=== PATIENT | female | born 1985 | race Caucasian/White ===

== ENCOUNTER → 2018-02-07 | Outpatient (CLI) | payer MEDICAID | LOC: HPND 13:41 | PROVIDERS: ATTEND Obstetrics & Gynecology | DX: O99.212 Obesity complicating pregnancy, second trimester (principal); E66.09 Other obesity due to excess calories; Z68.34 Body mass index [BMI] 34.0-34.9, adult | CPT/HCPCS: 76811 ==

== ENCOUNTER 2018-06-07 09:36 | Inpatient (IN) ==
[2018-06-07] MEDS ORDERED: Sodium Chlor 0.9% Inj 500 ML IV.SIG PRN (10:38)
[2018-06-07] MEDS ORDERED: Naloxone Inj 0.4 MG/ML Vial IV.PUSH PRN ×2 (10:38→12:29)
[2018-06-07] MEDS ORDERED: fentaNYL Citrate Inj 100 MCG/2 ML Ampul IV.PUSH PRN ×3 (10:38→12:41)
[2018-06-07] MEDS ORDERED: Sod Chloride 0.9% Inj 1,000 ML IV.CONT PRN (10:38)
--- NOTE | 2018-06-07 10:40 | P.HPOB ---
History of Present Illness Primary Care Physician: No Primary Care Physician Care for women History of Present Illness: at 39 weeks 1 day gestation, presents with increased contractions since 4 AM this morning. Patient is now feeling the contractions every 6 minutes. She denies any leakage of fluid. Denies any vaginal bleeding. OB history: SVT episode x2 during the , no medications used Gestational diabetes: Diet-controlled Previous OB history: x2last delivery in 2017 Med history: See above Medications: vitamins Allergies: None Review of Systems All other systems reviewed negative except as stated in HPI PMFSH - History History Provided By: Patient - Tobacco History Smoking Status: Never smoker - Alcohol History How Often Do You Have a Drink Containing Alcohol: Never - Substance Use History Substance History: No History of Abuse - Travel History History of Recent Travel: No Recent Travel in the [place] Within the Last 8 Weeks: No Recent Travel Out of the Country Within the Last 8 Weeks: No Medications and Allergies Active Medications: Active Medications Citric Acid/Sodium Citrate (Sodium Citrate/Citric Acid Liq) 30 ml PO PERIPHERAL VASCULAR TECH [facility] Stop: 06/11/18 10:44 Fentanyl Citrate (Fentanyl Inj) 50 mcg IV.PUSH Q1H PRN PRN Reason: Pain Scale 3 - 5 Allergies Allergy/AdvReac Type Severity Reaction Status Date / Time No Known Allergies Allergy Verified 06/07/18 10:24 Home Medications Medication Instructions Recorded Confirmed Type PNV cmb#95-ferrous fumarate-FA 1 tab PO DAILY 06/07/18 06/07/18 History [] Exam Vital signs: Vital Signs 06/07/18 09:56 Temperature 98.0 F Pulse Rate 83 Respiratory Rate 18 Blood Pressure 116/66 Intake & Output 06/06/18 06/07/18 06/07/18 18:59 06:59 18:59 Weight 86 kg Narrative: GENERAL: Well-nourished, well-developed patient. SKIN: Warm and dry. HEAD: Normocephalic and atraumatic. EYES: No scleral icterus. No injection or drainage. ENT: No nasal drainage noted. Mucous membranes pink. Airway patent. NECK: Supple, trachea midline. No JVD. CARDIOVASCULAR: Regular rate and rhythm without murmurs, gallops, or rubs. RESPIRATORY: Breath sounds equal bilaterally. No accessory muscle use. ABDOMEN/GI: Abdomen soft, non-tender, bowel sounds present, no rebound, no guarding Gravid to 39 weeks size Fundal Height: 40 Vaginal exam: 80/[address] Tejeda GENITOURINARY: External Genitalia: intact and normal in appearance FHT's: Category 1 with accelerations, no decelerations EXTREMITIES: No cyanosis or edema. BACK: Nontender without obvious deformity. No CVA tenderness. NEUROLOGICAL: Awake and alert. Motor and sensory grossly within normal limits. Five out of 5 muscle strength in all muscle groups. Normal speech. Caprini VTE Risk Assessment Caprini VTE Risk Assessment: No/Low Risk (score <= 1) Caprini Risk Assessment Model: Point Value = 1 Point Value = 2 Point Value = 3 Point Value = 5 Age 41-60 Minor surgery BMI > 25 kg/m2 Swollen legs Varicose veins or History of unexplained or recurrent spontaneous Oral contraceptives or hormone replacement Sepsis (< 1 month) Serious lung disease, including pneumonia (< 1 month) Abnormal pulmonary function Acute myocardial infarction Congestive heart failure (< 1 month) History of inflammatory bowel disease Medical patient at bed rest Age 61-74 Arthroscopic surgery Major open surgery (> 45 min) Laparoscopic surgery (> 45 min) Malignancy Confined to bed (> 72 hours) Immobilizing plaster cast Central venous access Age >= 75 History of VTE Family history of VTE Factor V Leiden Prothrombin [id number] Lupus anticoagulant Anticardiolipin antibodies Elevated serum homocysteine Heparin-induced thrombocytopenia Other congenital or acquired thrombophilia Stroke (< 1 month) Elective arthroplasty Hip, pelvis, or leg fracture Acute spinal cord injury (< 1 month) Prophylaxis Regimen: Total Risk Factor Score Risk Level Prophylaxis Regimen 0-1 Low Early ambulation 2 Moderate Order ONE of the following: *Sequential Compression Device (SCD) *Heparin 5000 units SQ BID 3-4 Higher Order ONE of the following medications: *Heparin 5000 units SQ TID *Enoxaparin/Lovenox 40 mg SQ daily (WT < 150 kg, CrCl > 30 mL/min) *Enoxaparin/Lovenox 30 mg SQ daily (WT < 150 kg, CrCl > 10-29 mL/min) *Enoxaparin/Lovenox 30 mg SQ BID (WT < 150 kg, CrCl > 30 mL/min) AND/OR *Sequential Compression Device (SCD) 5 or more Highest Order ONE of the following medications: *Heparin 5000 units SQ TID (Preferred with Epidurals) *Enoxaparin/Lovenox 40 mg SQ daily (WT < 150 kg, CrCl > 30 mL/min) *Enoxaparin/Lovenox 30 mg SQ daily (WT < 150 kg, CrCl > 10-29 mL/min) *Enoxaparin/Lovenox 30 mg SQ BID (WT < 150 kg, CrCl > 30 mL/min) AND *Sequential Compression Device (SCD) Assessment and Plan - Diagnosis (1) 39 weeks gestation of Code(s): Z3A.39 - 39 weeks gestation of Status: Acute Plan: at 39 weeks 1 day presents in labor. -Regular contractions, 4 cm dilated -Patient encouraged to walk around for for 1 hour and then go to labor room - labs reviewed, GBS negative -Admit to L&D after 1 hour, continue monitoring (2) SVT (supraventricular tachycardia) Code(s): I47.1 - Supraventricular tachycardia Status: Acute Plan: History of SVT episodes x2, well controlled without medications Continue to monitor (3) Gestational diabetes mellitus Code(s): O24.419 - Gestational diabetes mellitus in , unspecified control Status: Acute Plan: History of GDM well controlled on diet only Follow-up Accu-Cheks every hour through labor Follow-up 6-week visit with GCT with PCP
[2018-06-07] MEDS ORDERED: Citric Acid/Sodium Citrate Liq 30 ML UDC PO SCH (10:45)
[2018-06-07] MEDS ORDERED: Oxytocin 30 Units/500ml Premix 30 UNITS/500 ML BAG IV.SIG ONE (11:00)
[2018-06-07 11:44] LABS: Amphetamine Screen,Urine Neg (Neg); Amphetamine Urine With Conf Neg (Neg); Barbiturate Screen,Urine Neg (Neg); Benzodiazepine Urine With Conf Neg (Neg); Cannabinoid Screen,Urine Neg (Neg); Cocaine Screen,Urine Neg (Neg)
[2018-06-07 11:47] LABS: Bacteria,Urine Rare /hpf; Bilirubin,Urine Negative (Negative); Clarity,Urine Hazy (Clear); Color,Urine Yellow (Yellw/Straw); Glucose,Urine (UA) Negative (Negative); Leukocyte Esterase,Urine Large (Negative); Mucus,Urine Few /lpf (Occasional); Nitrite,Urine Negative (Negative); Specific Gravity,Urine 1.023 (1.002-1.035); Squamous Epithelial Cell,Urine 9 /hpf (0-5)
[2018-06-07 11:48] LABS: Opiate Screen,Urine Neg (Neg)
[2018-06-07] MEDS ORDERED: Lidocaine 1% Inj 50 ML Vial ONE (11:51)
[2018-06-07 12:12] LABS: Baso % (Auto) 0.4 % (0.0-2.0); Eos # (Auto) 0.1 th/mm3 (0.0-0.4); Eos % (Auto) 0.7 % (0.0-4.0); Hematocrit 33.2 % (35.0-46.0); Hemoglobin 10.9 gm/dL (11.6-15.3); Lymph # (Auto) 2.3 th/mm3 (1.0-4.8); Lymph % (Auto) 24.5 % (9.0-44.0); Mean Corpuscular HGB Conc 32.7 % (32.0-36.0); Mean Corpuscular Hemoglobin 27.2 pg (27.0-34.0); Mean Corpuscular Volume 83.3 fL (80.0-100.0); Mean Platelet Volume 9.4 fL (7.0-11.0); Mono # (Auto) 0.5 th/mm3 (0.0-0.9); Mono % (Auto) 5.8 % (0.0-8.0); Neut # (Auto) 6.4 th/mm3 (1.8-7.7); Neut % (Auto) 68.6 % (16.0-70.0); Platelet Count 285 th/mm3 (150-450); Red Blood Count 3.99 mil/mm3 (4.00-5.30); Red Cell Distribution Width 14.1 % (11.6-17.2); White Blood Count 9.3 th/mm3 (4.0-11.0)
[2018-06-07] MEDS ORDERED: Bisacodyl 10 MG Supp RECTAL PRN (12:29)
[2018-06-07] MEDS ORDERED: Acetaminophen 325 MG Tablet PO PRN (12:29)
[2018-06-07] MEDS ORDERED: Witch Hazel 50%/Glyderin 12.5% 40 Pad Jar RECTAL PRN (12:29)
[2018-06-07] MEDS ORDERED: Oxytocin 30 Units/500ml Premix 30 UNITS/500 ML BAG IV.CONT PRN (12:29)
[2018-06-07] MEDS ORDERED: Benzocaine 20% Top Spray 60 ML Can TOPICAL PRN (12:29)
[2018-06-07] MEDS ORDERED: Silver Nitrate/Potassium Nitrate Applicator Sticks TOPICAL ONE (12:30)
--- NOTE | 2018-06-07 14:12 | P.OBDELI ---
Weeks Gestation: 39 Patient Started Active Labor: Yes Active Labor Start Date: 06/07/18 Active Labor Start Time: 12:00 Medical Induction of Labor: No Artificial Rupture of Membrane: Yes Anesthesia: None Episiotomy: none Vaginal Delivery: Normal, Spontaneous Presentation: Occiput anterior Nuchal Cord: None Delayed Cord Clamping (45 sec): Yes Placenta: Spontaneous delivery Laceration: Vaginal (superficial vaginal x 1) Repair: Chromic running : Female Additional Information: at 39 weeks 1 day gestation, presents with increased contractions
[2018-06-07] MEDS ORDERED: Diphtheria/Tetanus/Pertussis Vaccine Inj 0.5 ML Syringe IM ONE (16:00)
[2018-06-07] MEDS ORDERED: Measles/Mumps/Rubella Vaccine Inj 0.5 ML Vial SQ ONE (16:00)
[2018-06-07] MEDS ORDERED: Zolpidem Tartrate 5 MG Tablet PO PRN (21:00)
[2018-06-07] MEDS: Senna/Docusate Sodium 8.6/50 MG Tablet PO SCH (21:33)
--- NOTE | 2018-06-08 08:22 | P.PNOB ---
Subjective Post day: 1 Interval history: Patient is a 32-year-old G 3 P 3 delivered at 30 weeks and 1 days. Patient is day 1 after . Patient had gestational diabetes controlled with diet. Patient's pain is well-controlled. Patient reports eating and drinking without any nausea or vomiting. Patient reports minimal bleeding. Patient has passed gas and had a bowel movement. Patient is walking without lower extremity pain or shortness of breath. Patient reports desire for contraception but is still contemplating which method. Patient would like to go home this afternoon. Objective Vital Signs/I&O: Vital Signs 06/07/18 09:56 06/07/18 11:19 06/07/18 11:41 Temperature 98.0 F Pulse Rate 83 84 95 H Respiratory Rate 18 Blood Pressure 116/66 97/60 L 111/60 06/07/18 11:44 06/07/18 12:00 06/07/18 12:16 Temperature Pulse Rate 161 H 89 83 Respiratory Rate Blood Pressure 127/91 H 114/77 134/59 L 06/07/18 12:20 06/07/18 12:35 06/07/18 12:50 Temperature 98.7 F Pulse Rate 73 73 Respiratory Rate 18 18 18 Blood Pressure 113/48 L 116/48 L 06/07/18 20:20 Temperature 98.7 F Pulse Rate 68 Respiratory Rate 18 Blood Pressure 129/54 L Intake & Output 06/07/18 06/08/18 06/08/18 18:59 06:59 18:59 Weight 86 kg Result Diagrams: 06/07/18 11:15 Objective Remarks: GENERAL: Well-nourished, well-developed patient. CARDIOVASCULAR: Regular rate and rhythm without murmurs, gallops, or rubs. RESPIRATORY: Breath sounds equal bilaterally. No accessory muscle use. ABDOMEN/GI: Abdomen soft, non-tender. Fundus: Firm, non-tender at umbilicus. GENITOURINARY: Light to moderate bleeding. EXTREMITIES: No cyanosis or edema, non-tender, without signs of DVT. Medications and IVs: Active Medications Acetaminophen (Tylenol) 650 mg PO Q4H PRN PRN Reason: PAIN SCALE 1 TO 2 Al Hydroxide/Mg Hydroxide (Milk Of Magnesia Liq) 30 ml PO Q12H PRN PRN Reason: Mild Constipation Benzocaine (Americaine 20% Top Ovalo) 1 spray TOPICAL Q4H PRN PRN Reason: For Perineum Discomfort Last Admin: 06/07/18 13:51 Dose: 1 spray Bisacodyl (Dulcolax Supp) 10 mg RECTAL DAILY PRN PRN Reason: SEVERE CONSITIPATION Citric Acid/Sodium Citrate (Sodium Citrate/Citric Acid Liq) 30 ml PO [facility] Stop: 06/11/18 10:44 Lactated Ringer's (Lr 1000 Ml Inj) 1,000 mls @ 3,000 mls/hr IV.SIG UNSCH PRN PRN Reason: compromise or epidural Sodium Chloride (Ns Inj) 500 mls @ 1,000 mls/hr IV.SIG UNSCH PRN PRN Reason: SEE LABEL COMMENTS Sodium Chloride (Ns Inj) 1,000 mls @ 100 mls/hr IV.CONT .Q10H PRN PRN Reason: SEE LABEL COMMENTS Lactated Ringer's (Lr 1000 Ml Inj) 1,000 mls @ 125 mls/hr IV.CONT .Q8H [facility] Last Admin: 06/07/18 21:35 Dose: Not Given Oxytocin (Pitocin 30 Units/Ns 500 Ml Premix) 30 units in 500 mls @ 100 mls/hr IV.CONT UNSCH PRN PRN Reason: Heavy bleeding Ibuprofen (Motrin) 800 mg PO Q8H PRN PRN Reason: For Cramping Last Admin: 06/07/18 21:33 Dose: 800 mg Lactulose (Lactulose Liq) 30 ml PO DAILY PRN PRN Reason: SEVERE CONSITIPATION Lidocaine HCl (Xylocaine 1% Inj) 0.1 ml I-DERMAL PRN PRN PRN Reason: For IV start Stop: 06/10/18 10:37 Lidocaine HCl (Xylocaine 1% Inj) 10 ml INFILTRATN PRN PRN PRN Reason: For episiotomy repair Stop: 06/09/18 10:37 Mineral Oil (Muri-Lube Oil) 10 ml TOPICAL UNSCH PRN PRN Reason: PRN perineal massage Naloxone HCl (Narcan Inj) 0.1 mg IV.PUSH Q2M PRN PRN Reason: for opiate reversal Ondansetron HCl (Zofran Odt) 4 mg PO Q6H PRN PRN Reason: NAUSEA OR VOMITING Senna/Docusate Sodium (Maci-Colace) 1 tab PO BID [facility] Last Admin: 06/07/18 21:33 Dose: 1 tab Sennosides (Senokot) 17.2 mg PO Q12H PRN PRN Reason: Moderate Constipation Sodium Chloride (Ns Flush) 2 ml IV.FLUSH BID [facility] Last Admin: 06/07/18 21:35 Dose: 2 ml Sodium Chloride (Ns Flush) 2 ml IV.FLUSH PRN PRN PRN Reason: FLUSH AFTER USING IV ACCESS Witch Brenda/Glycerin (Tucks Pads) 1 applicatio RECTAL QID PRN PRN Reason: HEMORRHOIDS Last Admin: 06/07/18 13:50 Dose: 1 applicatio Zolpidem Tartrate (Ambien) 5 mg PO HS PRN PRN Reason: SLEEP Assessment and Plan - Diagnosis (1) Normal course Code(s): Z39.2 - Encounter for routine follow-up Status: Acute (2) Gestational diabetes mellitus Code(s): O24.419 - Gestational diabetes mellitus in , unspecified control Status: Acute Plan: History of GDM well controlled on diet only Follow-up Accu-Cheks every hour through labor - Plan Patient is a 32-year-old G 3 P 3 delivered at 30 weeks and 1 days. Patient is day 1 after . Patient had gestational diabetes controlled with diet. Her glucose this morning was 128. Patient was counseled to do 6 weeks of pelvic rest. Patient was counseled to follow up in 6 weeks. --AF VSS --Continue routine care --Motrin and Percocet when necessary for pain --Encourage OOB --Pelvic rest for 6 weeks will need follow-up appointment at that time. --Contraception: Still contemplating --Follow-up 6-week visit with GCT with PCP --Anticipate discharge this afternoon or tomorrow depending on the pediatrics team.
[2018-06-08] MEDS: Senna/Docusate Sodium 8.6/50 MG Tablet PO SCH (10:07)
[2018-06-08] MEDS ORDERED: Influenza (Quadrivalent) Vaccine 0.5 ML Syringe IM ONE (15:30)
== END 2018-06-08 16:31 | disposition home or self-care (01) ==
LOC: HOBED 09:36 → H2E 10:40 → H1EA 13:04
PROVIDERS: ADMIT Obstetrics & Gynecology; ATTEND Obstetrics & Gynecology